=== PATIENT | female | born 1975 | race Caucasian/White ===

== ENCOUNTER → 2017-10-22 10:31 | Outpatient (CLI) | payer MEDICAID, SELFPAY ==
--- NOTE | 2017-10-22 10:38 | RAD_ITS ---
STUDY: X-RAY - LUMBAR SPINE REASON FOR EXAM: Female, 42 years old. Low back pain x2 years radiating down left leg TECHNIQUE: 5 view(s) of the lumbar spine were obtained. COMPARISON: None FINDINGS: Normal lumbar lordosis. There is no substantial scoliosis. There is a normal alignment of the vertebrae. There is mild diffuse endplate spondylosis. Normal disc space heights. There is no demonstrated fracture. There is no demonstrated spondylolysis of the pars interarticulares. The soft tissue structures are unremarkable. RAD/L/S Spine Min 4 Views IMPRESSION: There is mild diffuse endplate spondylosis. The study is otherwise unremarkable. There is no evidence of fracture, spondylolysis, or spondylolisthesis. Disc spacing is preserved. Electronically Signed: Deion Hi MD at 23:28 EST , Service support ,
== END ==
DX: M54.5 Low back pain (principal); G89.4 Chronic pain syndrome
CPT/HCPCS: 72110

== ENCOUNTER 2018-07-25 18:55 | Observation (INO) | payer MEDICAID, SELFPAY ==
[2018-07-25] VITALS (8 sets, daily range): BP systolic 99–123; BP diastolic 59–70; PULSE 104–117; RESP 16–24; TEMP 36.6–37.5; O2SAT 94–100; BMI 24.9
--- NOTE | 2018-07-25 19:13 | EKG12_ITS ---
Test Reason : COUGH Blood Pressure : / mmHG Vent. Rate : 114 BPM Atrial Rate : 114 BPM P-R Int : 130 ms QRS Dur : 080 ms QT Int : 316 ms P-R-T Axes : 071 055 056 degrees QTc Int : 435 ms Sinus tachycardia Otherwise normal ECG Confirmed by CATRACHITA YEPEZ, CHRIS ([id number]), desk editor EDGAR PLASENCIA ([id number] on 07/29/2018 12:51:19 PM Referred By: DC Confirmed By:CHRIS DOMÍNGUEZ MD
--- NOTE | 2018-07-25 19:20 | RAD_ITS ---
STUDY: X-RAY CHEST REASON FOR EXAM: Female, 43 years old. Cough, sore throat, fever. TECHNIQUE: Portable chest. COMPARISON: None. FINDINGS: Airspace disease is noted in the right lower lobe. Lung diego are otherwise clear. There is no demonstrated pleural abnormality. Normal size heart. Normal mediastinum and karina. Normal visualized pulmonary arteries. Normal visualized aortic arch and descending thoracic aorta. Normal visualized thoracic spine. Normal visualized ribs, clavicles, and shoulders. There is no demonstrated abnormality of the visualized soft tissue structures of the upper abdomen. RAD/Chest 1 View (Portable) IMPRESSION: Right lower lobe pneumonia. Electronically Signed: Adrianna Lilly MD at 19:39 EST Tel , Service support ,
[2018-07-25] MEDS: Ipratropium/Albuterol Sulfate 3 ML AMPUL.NEB INHALATION (19:26)
[2018-07-25] MEDS: Ondansetron 4 MG/2 ML Vial IV (19:33)
[2018-07-25] MEDS: MethylPREDNISolone 125 MG/2 ML Vial IV (19:33)
[2018-07-25] MEDS: 0.9% Normal Saline 1,000 ML 1000 ML IV (19:33)
[2018-07-25 19:59] LABS: Absolute Lymphocyte Count 1.72 X10^3/ul (0.83-4.51); Absolute Neutrophil Count 9.7 X10^3/uL (2.0-7.7); Basophil# 0.02 X10^3/uL; Basophil% 0.2 % (0-1); Differential Indicated SCAN CRITERIA MET; Eosinophil# 0.12 X10^3/uL; Hematocrit 39.2 % (37-47); Hemoglobin 12.9 g/dl (12.0-15.0); Lymphocyte # 1.72 X10^3/ul (4.0); Lymphocyte % 13.7 % (19-41); Mean Corp Hgb Conc 32.9 g/gl (32-36); Mean Corpuscular Volume 100.3 fL (81-99); Mean Platelet Vol. 9.8 fl (6.2-12.0); Neutrophil # 9.65 X10^3/uL (2.7-7.7); Neutrophil % 76.9 % (47-70); POSITIVE COUNT NO; POSITIVE DIFFERENTIAL NO; POSITIVE MORPHOLOGY YES; Platelet Count 280 K/mm3 (150-450); RBC Distribution Width CV 13.8 % (11.6-14.6); RBC Distribution Width SD 50.4 fl (35.1-43.9); Red Blood Count 3.91 M/mm3 (4.2-5.4); White Blood Count 12.5 K/mm3 (4.4-11.0)
[2018-07-25 20:10] LABS: Anion Gap 5 (5-15); BUN 7 mg/dL (7-18); BUN/Creat Ratio 10.4 RATIO (10-20); Calcium,Total 8.2 mg/dL (8.5-10.1); Chloride 104 mmol/L (98-107); Creatinine, Serum 0.68 mg/dL (0.55-1.02); EST Glomerular Filtration Rate 101 mL/min (>60); Est Glom Filt Rate - Afr Amer 122 mL/min (>60); Glucose 91 mg/dL (74-106); Potassium 3.9 mmol/L (3.5-5.1); Sodium Level 135 mmol/L (136-145)
[2018-07-25 20:18] LABS: Differential Comment SCANNED
[2018-07-25] MEDS: levoFLOXacin IV 750 MG/150 ML BAG 100 MG IV (22:14)
--- NOTE | 2018-07-25 22:28 | ED.VISSUMM ---
- ER Visit Summary Date of Service: 07/25/18 Chief Complaint: Cough History of Present Illness: The patient is a 43 F with a cough for the past week. The patient had an upper respiratory infection and seemed to get better. Then, about a week ago she started to get sick again. She has a cough with sputum. She feels short of breath and has chest pain at times. She has been having nausea and vomiting as well. She normally takes Zofran but ran out. She denies abdominal pain or other GI symptoms. Physical Examination: Heart rate 117. Otherwise vitals unremarkable. Patient appears uncomfortable and short of breath. Lungs show diminished sounds but otherwise are unremarkable. Heart tachycardic but regular. Skin normal in color. Calves soft and supple. Test Results: EKG showed sinus tachycardia at a rate of 114. No sign of acute ischemia or infarction pattern. Troponin normal. White count 12.5 and sodium 135. Cultures and lactate pending. test pending. Chest x-ray showed right lower lobe pneumonia. Emergency Department Course and Treatment: Patient treated with Solu-Medrol, Zofran, DuoNeb, and fluids while awaiting results. On reevaluation, she remains tachycardic. Her shortness of breath improved, but she is having continued coughing fits. I advised the patient that we can prescribe steroids, breathing treatments, antibiotics. The patient did not feel comfortable going home. Her family did not feel comfortable with her going home. She feels short of breath at times. She has very severe cough. She feels that she is not doing well at home. I spoke with the hospitalist will evaluate the patient. She was treated with Levaquin. Treatment Plan: As above Disposition: Admission Impression: 1. Right lower lobe pneumonia This note was generated with [employer] dictation software. It may contain incorrect words, spelling, and punctuation that were not noted in review of the chart prior to signing ED Disposition - Plan for ED Patient: Chief Complaint: Cough Referrals: Abilio Aguilar MD [Primary Care Provider] -
[2018-07-25 22:33] LABS: Pregnancy, Serum, hCG Quali. NEGATIVE Negative (0-9 Nonpreg)
[2018-07-25 22:39] LABS: Lactic Acid 1.4 mmol/L (0.4-2.0)
--- NOTE | 2018-07-25 23:48 | HP.PCM_ITS ---
Problem List (1) Community acquired pneumonia Status: Acute History of Present Illness Date of Admission: 07/25/18 Chief Complaint: coughing The patient is a 43 year old F with a significant history of tobacco abuse; fibromyalgia; arthritis; spinal stenosis with routine epidural injection; smoker who presents with progressively worsening cough that started about 2 weeks ago. As stated above patient had a cough that started about 2 weeks ago but it re solved only to reappear a week later. At times her cough is productive for yellow sputum. She reports of hemoptysis. Associated with her symptoms is a fever of 101 but without chills. She reports shortness of breath at rest which increases with exertion. She reports sore throat. She vomited a day before her presentation. She reported she had home Zofran which she ran out of. Past Medical History Medical History: Medical History (Last Updated 07/26/18 @ 02:09 by Ted Arechiga MD) Fibromyalgia M79.7 Spinal stenosis M48.00 Allergies oxybutynin Adverse Reaction (Verified 07/25/18 18:57) Other SINUS IRRITATION Home Medications: Ambulatory Orders Medication Instructions Recorded Meloxicam 7.5 mg PO DAILY 04/19/14 Baclofen 10 mg PO DAILY 02/02/15 Duloxetine Hcl [Cymbalta] 30 mg PO DAILY 02/02/15 Oxycodone HCl/Acetaminophen 1 tablet PO Q6H 02/02/15 [Percocet 5/325] Lidocaine [Lidoderm Patch] 1 patch TOPICAL TID PRN 11/22/15 Pantoprazole Sodium [Protonix] 40 mg PO DAILY 11/22/15 Tamsulosin HCl [Flomax] 0.4 mg PO DAILY #3 cap.er.24h 12/19/16 Escitalopram Oxalate [Lexapro] 10 mg PO DAILY 07/25/18 Lorazepam [Ativan] 0.5 mg PO Q6H PRN PRN 07/25/18 Surgical History: hysterectomy, - - Tubal ligation; end exploratory laparotomy. Psychiatric History: Anxiety, Depression Lives: Spouse/ Significant Other Smoking Status: Current every day smoker Tobacco Use: Cigarettes - *Family History Maternal Family History: Family History (Last Updated 07/26/18 @ 02:10 by Ted Arechiga MD) Mother Breast cancer Father Lung cancer Review of Systems Constitutional: Reports: Fever. Denies: Chills, Weight Change HEENT: Reports: Head Aches. Denies: Sinus Congestion, Sinus Drainage Cardiovascular: Denies: Chest Pain, Palpitations Respiratory: Reports: Cough, Shortness of Breath, Shortness of breath at rest, Shortness of breath upon exertion. Denies: Sputum production Gastrointestinal: Reports: Vomiting. Denies: Abdominal Pain Genitourinary: Denies: Dysuria Musculoskeletal: Reports: Back Pain - Chronic. Denies: Joint Pain, Joint Tenderness Skin: Denies: Rash, Wounds Neurological: Denies: Numbness, Tingling, Focal weakness Psychiatric: Denies: Anxiety, Depression, Homicidal Ideations, Suicidal Ideations Hematologic/ Lymphatic: Denies: Easy Bruising, Easy Bleeding VTE Information - Inpt Only VTE Present on Admission: No VTE Mechan Device Prophylaxis: None VTE Pharm Prophylaxis ordered?: Yes Patient Problems: Active and Suspected Problems (Last Updated 07/26/18 @ 02:09 by Ted Arechiga MD) Community acquired pneumonia (Acute) - Physical Exam General: Alert, Oriented x3, Cooperative HEENT: Atraumatic, PERRLA, EOMI, Normocephalic Neck: Supple, No JVD, Negative Carotid Bruits Lungs: Clear to auscultation, Normal air movement, Rhonchi Cardiovascular: No murmurs, Tachycardic Abdomen: Bowel Sounds Present, Soft, Non Tender Extremities: No edema, Capillary Refill Less than 3 Seconds Skin: No rashes, No breakdown Musculoskeletal: No Tenderness to Palpation of Joints or Extremities Neurological: Cranial nerves II-XII grossly intact Psych/Mental Status: Normal Affect, Appropriate Vital Signs Temp Pulse Resp BP Pulse Ox 98 F 107 H 18 111/60 98 07/25/18 23:24 07/25/18 23:24 07/25/18 23:24 07/25/18 23:24 07/25/18 23:24 Oxygen Flow Rate (L/min) 2 Oxygen Delivery Method Room Air Weight: 59.874 kg Body Mass Index (BMI) 24.9 Laboratory Tests Past 24 Hrs 07/25/18 07/25/18 07/25/18 19:30 19:30 19:30 WBC 12.5 H RBC 3.91 L Hgb 12.9 Hct 39.2 MCV 100.3 H MCH 33.0 H MCHC 32.9 RDW 13.8 RDW Differential 50.4 H Plt Count 280 MPV 9.8 Immature Gran % (Auto) 0.200 Neut % (Auto) 76.9 H Lymph % (Auto) 13.[address] [place] % (Auto) 8.0 Eos % (Auto) 1.0 Baso % (Auto) 0.2 Absolute Neuts (auto) 9.7 H Absolute Lymphs (auto) 1.72 Total Counted Not Reportable Differential Comment SCANNED Sodium 135 L Potassium 3.9 Chloride 104 Carbon Dioxide 26.0 Anion Gap 5 BUN 7 Creatinine 0.68 Estim Creat Clear Calc 80.50 Est GFR (MDRD) Af Amer 122 Est GFR (MDRD) Non-Af 101 BUN/Creatinine Ratio 10.4 Glucose 91 Lactic Acid Calcium 8.2 L Troponin I < 0.015 Albumin Serum , Qual NEGATIVE 07/25/18 07/25/18 19:30 22:04 WBC RBC Hgb Hct MCV MCH MCHC RDW RDW Differential Plt Count MPV Immature Gran % (Auto) Neut % (Auto) Lymph % (Auto) [place] % (Auto) Eos % (Auto) Baso % (Auto) Absolute Neuts (auto) Absolute Lymphs (auto) Total Counted Differential Comment Sodium Potassium Chloride Carbon Dioxide Anion Gap BUN Creatinine Estim Creat Clear Calc Est GFR (MDRD) Af Amer Est GFR (MDRD) Non-Af BUN/Creatinine Ratio Glucose Lactic Acid 1.4 Calcium Troponin I Albumin Pending Serum , Qual Assessment/Plan All Active Problems (Last Updated 07/26/18 @ 02:09 by Ted Arechiga MD) Community acquired pneumonia (Acute) The patient is a 43 year old F with a significant history of tobacco abuse; fibromyalgia; arthritis; spinal stenosis with routine epidural injection; smoker who presents with progressively worsening cough; fever shortness of breath; sore throat and dyspnea. Community-acquired pneumonia. Her chest x-ray showed infiltrating right lower lobe consistent with probable pneumonia.. Patient and her felt uncomfortable going home and a decision was made to admit patient. She received Levaquin at emergency department. Will order Levaquin IV for next day. Scheduled DuoNeb and as needed albuterol ordered. Blood cultures are pending. Strep pneumonia antigen; and Legionella antigen were unremarkable. Sputum cultures are pending. Mucinex ordered. Chest physiotherapy ordered. Oxygen as needed. Anticipate sequential antibiotics by transitioning from IV antibiotics to oral antibiotics next day and probably discharged home. Viral syndrome cannot be completely ruled out especially with a sore throat and other multiple symptoms. Influenza screen ordered. Tobacco abuse She reports that she has Chantix sitting at home that she does not use. Counseled Jennifer ordered. Chronic back pain Baclofen continued Depression Cymbalta and Lexapro continued. Anxiety disorder Ativan continued DVT prophylaxis Lovenox ordered Code Visit OBSV E&M: 36297 Initial observation care L3
[2018-07-25 23:55] LABS: Albumin, Serum 3.3 g/dL (3.2-5.0)
[2018-07-26] VITALS (9 sets, daily range): BP systolic 112–127; BP diastolic 56–67; PULSE 8–94; RESP 16–20; TEMP 36.4–36.6; O2SAT 96–98
[2018-07-26] MEDS: guaiFENesin 1,200 MG Tablet 1200 MG PO ×3 (00:32→22:05)
[2018-07-26] MEDS: oxyCODONE 5 MG Tablet PO ×4 (00:32→22:05)
[2018-07-26] MEDS: Acetaminophen 325 MG Tablet 650 MG PO (00:33)
[2018-07-26] MEDS: LORazepam 0.5 MG Tablet PO (00:33)
[2018-07-26] MEDS: Ipratropium/Albuterol Sulfate 3 ML AMPUL.NEB INHALATION ×4 (03:22→19:50)
[2018-07-26 06:36] LABS: Absolute Lymphocyte Count 0.77 X10^3/ul (0.83-4.51); Absolute Neutrophil Count 7.3 X10^3/uL (2.0-7.7); Basophil# 0.01 X10^3/uL; Basophil% 0.1 % (0-1); Hematocrit 37.1 % (37-47); Hemoglobin 12.4 g/dl (12.0-15.0); Lymphocyte # 0.77 X10^3/ul (4.0); Lymphocyte % 9.3 % (19-41); Mean Corp Hgb Conc 33.4 g/gl (32-36); Mean Corpuscular Hgb 33.4 pg (27.0-32.0); Mean Platelet Vol. 9.7 fl (6.2-12.0); Monocyte# 0.19 X10^3/uL; Monocyte% 2.3 % (0-10); Neutrophil # 7.27 X10^3/uL (2.7-7.7); Neutrophil % 88.1 % (47-70); Platelet Count 270 K/mm3 (150-450); RBC Distribution Width CV 13.6 % (11.6-14.6); RBC Distribution Width SD 48.8 fl (35.1-43.9); Red Blood Count 3.71 M/mm3 (4.2-5.4); White Blood Count 8.3 K/mm3 (4.4-11.0)
[2018-07-26 06:45] LABS: POSITIVE COUNT NO; POSITIVE DIFFERENTIAL NO; POSITIVE MORPHOLOGY NO
[2018-07-26 06:55] LABS: Anion Gap 10 (5-15); BUN 8 mg/dL (7-18); BUN/Creat Ratio 13.6 RATIO (10-20); Chloride 107 mmol/L (98-107); Creatinine, Serum 0.59 mg/dL (0.55-1.02); EST Glomerular Filtration Rate 119 mL/min (>60); Est Glom Filt Rate - Afr Amer 144 mL/min (>60); Estimated Creatinine Clearance 92.78 ml/min; Glucose 171 mg/dL (74-106); Sodium Level 140 mmol/L (136-145)
--- NOTE | 2018-07-26 09:28 | PN_ITS ---
Patient Problems: Active and Suspected Problems (Last Updated 07/26/18 @ 02:09 by Ted Arechiga MD) Community acquired pneumonia (Acute) Subjective: Chief complaint: Follow-up after admission for acute bronchitis and probable early right lower lobe community acquired pneumonia. Patient seen and examined. No acute events overnight. She still complaining of severe dry cough associated with significant chest discomfort. She denies fever chills. Her vital signs are stable. - Physical Exam General: Alert, Oriented x3, Cooperative, No apparent distress HEENT: Atraumatic, PERRLA, EOMI, Normocephalic Oral: Moist Mucosa, No Gingival or Mucosal Lesions/ Ulcerations Neck: Supple, No JVD, Negative Carotid Bruits, Trachea Midline, Thyroid Normal Size and Texture Lungs: Clear to auscultation, No wheeze, No rales, Diminished, Rhonchi Cardiovascular: Regular rate, Regular Rhythm, Normal S1, Normal S2, No murmurs, PMI Normal Abdomen: Bowel Sounds Present, Soft, Non Tender, Non-Distended, No Hepato- splenomegaly Extremities: No clubbing, No cyanosis, No edema Skin: No rashes, No breakdown Lymphatic: No Cervical, Supraclavicular, or Inguinal Adenopathy Neurological: Cranial nerves II-XII grossly intact, Motor Exam 5/5 strength throughout Psych/Mental Status: Normal Affect, Appropriate, Alert and oriented to time, place, person, mood and affect Vital Signs Temp Pulse Resp BP Pulse Ox 98 F 88 16 111/60 96 07/25/18 23:24 07/26/18 07:16 07/26/18 07:16 07/25/18 23:24 07/26/18 07:16 Oxygen Flow Rate (L/min) 2 Oxygen Delivery Method Room Air Weight: 132 lb Body Mass Index (BMI) 24.9 Intake and Output for Last 24 Hours 07/24/18 07/25/18 07/26/18 23:59 23:59 23:59 Intake Total 1000 / 1000 Balance 1000 / 1000 Microbiology Past 72 Hours 07/26/18 00:45 Streptococcus pneumoniae Antigen (M - Final Urine, Clean Catch 07/26/18 00:45 Legionella Antigen - Final Urine, Clean Catch Laboratory Tests Past 24 Hrs 07/25/18 07/25/18 07/25/18 19:30 19:30 19:30 WBC 12.5 H RBC 3.91 L Hgb 12.9 Hct 39.2 MCV 100.3 H MCH 33.0 H MCHC 32.9 RDW 13.8 RDW Differential 50.4 H Plt Count 280 MPV 9.8 Immature Gran % (Auto) 0.200 Neut % (Auto) 76.9 H Lymph % (Auto) 13.7 L [place] % (Auto) 8.0 Eos % (Auto) 1.0 Baso % (Auto) 0.2 Absolute Neuts (auto) 9.7 H Absolute Lymphs (auto) 1.72 Total Counted Not Reportable Differential Comment SCANNED Sodium 135 L Potassium 3.9 Chloride 104 Carbon Dioxide 26.0 Anion Gap 5 BUN 7 Creatinine 0.68 Estim Creat Clear Calc 80.50 Est GFR (MDRD) Af Amer 122 Est GFR (MDRD) Non-Af 101 BUN/Creatinine Ratio 10.4 Glucose 91 Lactic Acid Calcium 8.2 L Troponin I < 0.015 Albumin Serum , Qual NEGATIVE Influenza Type A Ag Influenza Type B Ag 07/25/18 07/25/18 07/26/18 19:30 22:04 05:55 WBC 8.3 RBC 3.71 L Hgb 12.4 Hct 37.1 MCV 100.0 H MCH 33.4 H MCHC 33.4 RDW 13.6 RDW Differential 48.8 H Plt Count 270 MPV 9.7 Immature Gran % (Auto) 0.200 Neut % (Auto) 88.1 H Lymph % (Auto) 9.3 L [place] % (Auto) 2.3 Eos % (Auto) 0.0 Baso % (Auto) 0.1 Absolute Neuts (auto) 7.3 Absolute Lymphs (auto) 0.77 L Total Counted Not Reportable Differential Comment Sodium Potassium Chloride Carbon Dioxide Anion Gap BUN Creatinine Estim Creat Clear Calc Est GFR (MDRD) Af Amer Est GFR (MDRD) Non-Af BUN/Creatinine Ratio Glucose Lactic Acid 1.4 Calcium Troponin I Albumin 3.3 Serum , Qual Influenza Type A Ag Influenza Type B Ag 07/26/18 07/26/18 05:55 05:55 WBC RBC Hgb Hct MCV MCH MCHC RDW RDW Differential Plt Count MPV Immature Gran % (Auto) Neut % (Auto) Lymph % (Auto) [place] % (Auto) Eos % (Auto) Baso % (Auto) Absolute Neuts (auto) Absolute Lymphs (auto) Total Counted Differential Comment Sodium 140 Potassium 4.0 Chloride 107 Carbon Dioxide 23.0 Anion Gap 10 BUN 8 Creatinine 0.59 Estim Creat Clear Calc 92.78 Est GFR (MDRD) Af Amer 144 Est GFR (MDRD) Non-Af 119 BUN/Creatinine Ratio 13.6 Glucose 171 H Lactic Acid Calcium 8.0 L Troponin I Albumin Serum , Qual Influenza Type A Ag Pending Influenza Type B Ag Pending Medical Necessity - Tobacco Use Smoking Status: Current every day smoker Tobacco Use: Cigarettes Assessment/Plan All Active Problems (Last Updated 07/26/18 @ 02:09 by Ted Arechiga MD) Community acquired pneumonia (Acute) This is a 42 years old female patient presented to the emergency room because of persistent dry cough and she was found to have probable early infiltrate on the right base on chest x-ray, found to have acute bronchitis and probable near the right lower lobe community-acquired pneumonia. #1 acute bronchitis/probable early right lower lobe community acquired pneumonia: Chest x-ray reviewed, revealed possible early right lower lobe infiltrate. She is afebrile, no leukocytosis, lactic acid is normal. She is on IV Levaquin and bronchodilators. She is still symptomatic. Her vital signs are stable, afebrile, pulse ox is maintained on room air. Pneumococcal and Legionella antigen were negative. Blood cultures pending. Plan: Continue same treatment, start Robitussin-AC as needed. #2 suspected COPD: Patient is a longtime smoker, has been using albuterol nebulizer at home. Never had lung function test and never been diagnosed officially with COPD. She is on DuoNeb and albuterol as needed, pulse oximeter on room air. Plan as above. #3 chronic back pain: Continue OxyIR, baclofen and Mobic. #4 anxiety/depression: Stable, continue Cymbalta Lexapro and Ativan. #5 tobacco abuse: Continue NicoDerm patch. #6 DVT prophylaxis: Subcu Lovenox. This note was generated with [employer] dictation software. It may contain incorrect words, spelling, and punctuation that were not noted in checking the note before signing. Code Visit Inpatient E&M: 47992 Subs Hosp L2
[2018-07-26] MEDS: Escitalopram Oxalate 10 MG Tablet PO (09:46)
[2018-07-26] MEDS: Pantoprazole Sodium 40 MG Tablet PO (09:46)
[2018-07-26] MEDS: Meloxicam 7.5 MG Tablet PO (09:46)
[2018-07-26] MEDS: Baclofen 10 MG Tablet PO (09:46)
[2018-07-26] MEDS: DULoxetine Hcl 30 MG Capsule PO (09:46)
[2018-07-26] MEDS: Enoxaparin 40 MG/0.4 ML Syringe SC (09:48)
[2018-07-26] MEDS: guaiFENesin/Codeine 5 ML UDC 10 ML PO ×3 (09:54→22:05)
[2018-07-26] MEDS: 0.9% NaCl Peripheral Flush Adult/Peds IV (15:39)
[2018-07-26] MEDS: levoFLOXacin IV 750 MG/150 ML BAG 100 MG IV (22:05)
[2018-07-27] VITALS (8 sets, daily range): BP systolic 114–120; BP diastolic 76–86; PULSE 82–89; RESP 16–21; TEMP 36.5–37.1; O2SAT 95–97
[2018-07-27] MEDS: Magnesium Hydroxide 30 ML UDC PO (00:09)
[2018-07-27] MEDS: LORazepam 0.5 MG Tablet PO (00:10)
[2018-07-27] MEDS: Ipratropium/Albuterol Sulfate 3 ML AMPUL.NEB INHALATION ×3 (00:25→13:13)
[2018-07-27] MEDS: Ondansetron 4 MG/2 ML Vial IV (00:27)
[2018-07-27] MEDS: guaiFENesin/Codeine 5 ML UDC 10 ML PO ×3 (04:18→14:44)
[2018-07-27] MEDS: oxyCODONE 5 MG Tablet PO ×2 (04:18→10:14)
--- NOTE | 2018-07-27 09:05 | DCINST_ITS ---
- Discharge Diagnoses Current Active Problems: Current Active and Chronic Problems (Last Updated 07/26/18 @ 02:09 by Ted Arechiga MD) Community acquired pneumonia (Acute) You will use the following diet at home:: Regular Discharge Activity: May not drive while taking narcotic pain medications. Call your doctor if you observe: Fever of 101 or Higher, Inability to have a bowel movement, Shortness of breath, Fainting spells, Swelling in the ankles, Chest pain, Increased palpitations (irregular heartbeat) Allergies/Adverse Reactions: Allergies oxybutynin Adverse Reaction (Verified 07/25/18 18:57) Other SINUS IRRITATION Medications to take at Discharge Meloxicam 7.5 mg PO DAILY 04/19/14 Baclofen 10 mg PO DAILY 02/02/15 Duloxetine Hcl [Cymbalta] 30 mg PO DAILY 02/02/15 Oxycodone HCl/Acetaminophen [Percocet 5-325] 1 tablet PO Q6H 02/02/15 Lidocaine [Lidoderm Patch] 1 patch TOPICAL TID PRN 11/22/15 Pantoprazole Sodium [Protonix] 40 mg PO DAILY 11/22/15 Tamsulosin HCl [Flomax] 0.4 mg PO DAILY #3 cap.er.24h 12/19/16 Escitalopram Oxalate [Lexapro] 10 mg PO DAILY 07/25/18 Lorazepam [Ativan] 0.5 mg PO Q6H PRN PRN 07/25/18 Albuterol Inhaler [Ventolin Hfa] 2 puff INHALATION Q4H PRN PRN #1 inhaler 07/27/18 Guaifenesin [Mucinex] 1,200 mg PO BID #14 tablet 07/27/18 Levofloxacin [Levaquin] 500 mg PO DAILY #5 tablet 07/27/18 Nicotine [Nicoderm Cq] 21 mg TRANSDERM. DAILY patch 07/27/18 The following prescriptions were given: Albuterol Inhaler [Ventolin Hfa] 2 puff INHALATION Q4H PRN PRN #1 inhaler PRN Reason: SOB/Wheezing Levofloxacin [Levaquin] 500 mg PO DAILY #5 tablet Guaifenesin [Mucinex] 1,200 mg PO BID #14 tablet Primary Care Physician: Abilio Aguilar MD [Primary Care Provider] - Please follow up with your Primary Care Physician in: in 1-2 weeks. Need outpatient PFT Test Results: Test results from this visit will be discussed in further detail at your follow- up appointment, if applicable.
--- NOTE | 2018-07-27 09:05 | PCM.DC.SUM ---
Discharge Date and Diagnosis Date of Admission: 07/25/18 Date of Discharge: 07/27/18 - Primary Discharge Diagnosis Active and Suspected Problems (Last Updated 07/26/18 @ 02:09 by Ted Arechiga MD) Community acquired pneumonia (Acute) Right lower lobe involving early evolving community-acquired pneumonia Hospital Course and Treatment Summary of Care Provided: [] This is a 42 years old female patient who was admitted to regular floor because of persistent dry cough for 1 week, nausea and vomiting and shortness of breath and sore throat. Low-grade fever in ER. she was found to have probable early infiltrate on the right base on chest x-ray, found to have acute bronchitis and probable early evolving right lower lobe community-acquired pneumonia. #1 acute bronchitis/probable early right lower lobe community acquired pneumonia: Chest x-ray reviewed, revealed possible early right lower lobe infiltrate. She is afebrile, no leukocytosis, lactic acid is normal. She is on IV Levaquin and bronchodilators. She is still symptomatic. Her vital signs are stable, afebrile, pulse ox is maintained on room air. Pneumococcal and Legionella antigen were negative. Blood cultures negative for more than 48 hours. Leukocytosis resolved. Patient was discharged on Levaquin for 5 more days. Patient also given prescription for Robitussin-AC because of persistent severe cough. #2 suspected COPD: Patient is a longtime smoker, has been using albuterol nebulizer at home. Never had lung function test and never been diagnosed officially with COPD. She is on DuoNeb and albuterol as needed, pulse oximeter on room air. Patient will need outpatient PFT. Discharged on albuterol inhaler. #3 chronic back pain: Continue OxyIR, baclofen and Mobic. #4 anxiety/depression: Stable, continue Cymbalta Lexapro and Ativan. #5 tobacco abuse: Continue NicoDerm patch. #6 DVT prophylaxis: Subcu Lovenox. Discharge medication reconciliation done. Discharge medications and follow-up instructions discussed with the patient. Follow-up PCP in 1-2 weeks. Total time spent, exact 35 minutes on discharge meds reconciliation, examination, review of imaging and blood test and discussion with the patient on follow-up instructions. - Physical Exam Vital Signs Temp Pulse Resp BP Pulse Ox 98.1 F 84 16 120/86 H 96 07/27/18 08:51 07/27/18 08:51 07/27/18 08:51 07/27/18 08:51 07/27/18 08:51 Oxygen Flow Rate (L/min) 2 Oxygen Delivery Method Room Air Weight: 132 lb Body Mass Index (BMI) 24.9 Intake and Output for Last 24 Hours 07/25/18 07/26/18 07/27/18 23:59 23:59 23:59 Intake Total 1420 / 1420 1525 / 1525 Balance 1420 / 1420 1525 / 1525 Microbiology Past 72 Hours 07/26/18 00:45 Streptococcus pneumoniae Antigen (M - Final Urine, Clean Catch 07/26/18 00:45 Legionella Antigen - Final Urine, Clean Catch Discharge Activity: May not drive while taking narcotic pain medications. Call your doctor if you observe: Fever of 101 or Higher, Inability to have a bowel movement, Shortness of breath, Fainting spells, Swelling in the ankles, Chest pain, Increased palpitations (irregular heartbeat) Home Medications: Medications to take at Discharge Meloxicam 7.5 mg PO DAILY 04/19/14 Baclofen 10 mg PO DAILY 02/02/15 Duloxetine Hcl [Cymbalta] 30 mg PO DAILY 02/02/15 Oxycodone HCl/Acetaminophen [Percocet 5-325] 1 tablet PO Q6H 02/02/15 Lidocaine [Lidoderm Patch] 1 patch TOPICAL TID PRN 11/22/15 Pantoprazole Sodium [Protonix] 40 mg PO DAILY 11/22/15 Tamsulosin HCl [Flomax] 0.4 mg PO DAILY #3 cap.er.24h 12/19/16 Escitalopram Oxalate [Lexapro] 10 mg PO DAILY 07/25/18 Lorazepam [Ativan] 0.5 mg PO Q6H PRN PRN 07/25/18 Albuterol Inhaler [Ventolin Hfa] 2 puff INHALATION Q4H PRN PRN #1 inhaler 07/27/18 Guaifenesin [Mucinex] 1,200 mg PO BID #14 tablet 07/27/18 Guaifenesin/Codeine [Robitussin AC] 5 ml PO Q4H PRN PRN #75 ml 07/27/18 Levofloxacin [Levaquin] 500 mg PO DAILY #5 tablet 07/27/18 Nicotine [Nicoderm Cq] 21 mg TRANSDERM. DAILY patch 07/27/18 Following Prescrptions Were Given to Patient: Albuterol Inhaler [Ventolin Hfa] 2 puff INHALATION Q4H PRN PRN #1 inhaler PRN Reason: SOB/Wheezing Guaifenesin/Codeine [Robitussin AC] 5 ml PO Q4H PRN PRN #75 ml PRN Reason: Cough Levofloxacin [Levaquin] 500 mg PO DAILY #5 tablet Guaifenesin [Mucinex] 1,200 mg PO BID #14 tablet Primary Care Physician: Abilio Aguilar MD [Primary Care Provider] - Please follow up with your Primary Care Physician in: in 1-2 weeks. Need outpatient PFT Medical Necessity - Tobacco Use Smoking Status: Current every day smoker Tobacco Use: Cigarettes Meaningful Use Info Meaningful Use Diagnoses (Choose all that apply): None applicable Code Visit Inpatient E&M: 28576 [facility]
[2018-07-27] MEDS: guaiFENesin 600 MG Tablet PO (09:35)
[2018-07-27] MEDS: Enoxaparin 40 MG/0.4 ML Syringe SC (09:39)
[2018-07-27] MEDS: Meloxicam 7.5 MG Tablet PO (09:40)
[2018-07-27] MEDS: Escitalopram Oxalate 10 MG Tablet PO (09:40)
[2018-07-27] MEDS: DULoxetine Hcl 30 MG Capsule PO (09:40)
[2018-07-27] MEDS: Baclofen 10 MG Tablet PO (09:40)
[2018-07-27] MEDS: Pantoprazole Sodium 40 MG Tablet PO (09:40)
[2018-07-30 08:28] LABS: Influenza B Negative (Neg:<1:8)
== END 2018-07-27 15:19 | disposition home or self-care (01) ==
LOC: ED 20:33 → MS3 22:39
PROVIDERS: Admitting Provider Hospitalist; Emergency Provider Emergency Medicine; Family Provider Family Medicine; PCP Family Medicine; Visit Provider Internal Medicine
DX: J18.9 Pneumonia, unspecified organism (principal); Z23 Encounter for immunization; F41.9 Anxiety disorder, unspecified; F32.9 Major depressive disorder, single episode, unspecified; G89.29 Other chronic pain; M79.7 Fibromyalgia; M19.90 Unspecified osteoarthritis, unspecified site; M48.00 Spinal stenosis, site unspecified; Z79.891 Long term (current) use of opiate analgesic; F17.210 Nicotine dependence, cigarettes, uncomplicated; Z79.899 Other long term (current) drug therapy
CPT/HCPCS: 36415; 71045; 80048; 82040; 83605; 84484; 84703; 85025; 86710; 87040; 87070; 87077; 87205; 87449; 93005; 94640; 94667; 94668; 96365; 96366; 96372; 96375; 96376; 99218; 99283; 99406; J7030; 90686; A4216; G0378; J2405

== ENCOUNTER → 2019-06-17 12:07 | Outpatient (CLI) | payer MEDICAID, SELFPAY ==
[2018-07-25 23:06] VITALS: BMI 24.9
[2019-06-17 14:15] LABS: Color, Urine Straw (Yellow); Glucose, Dipstick Normal (Normal); Ketone-Dipstick Negative (Negative); Leukocyte Esterase-Dipstick Negative /ul (Negative); Nitrite-Dipstick Negative (Negative); Occult Blood-Urine Negative /ul (Negative); Protein-Dipstick Negative (Negative); Specific Gravity, Urine 1.005 (1.002-1.030); Urine Bilirubin Dipstick Negative (Negative); Urine Clarity Clear (Clear); Urine Urobilinogen Normal (Normal)
[2019-06-17 14:16] LABS: Absolute Lymphocyte Count 1.89 X10^3/uL (0.83-4.51); Absolute Neutrophil Count 4.5 X10^3/uL (2.0-7.7); Basophil# 0.05 X10^3/uL; Basophil% 0.7 % (0-1); Eosinophils% 2.8 % (0-5); Hematocrit 45.3 % (37-47); Lymphocyte # 1.89 X10^3/ul (4.0); Lymphocyte % 26.2 % (19-41); Mean Corp Hgb Conc 33.1 g/dL (32-36); Mean Corpuscular Hgb 33.2 pg (27.0-32.0); Mean Corpuscular Volume 100.2 fL (81-99); Mean Platelet Vol. 9.2 fl (6.2-12.0); Monocyte# 0.58 X10^3/uL; NRBC Flagged by Analyzer 0 % (0-5); Neutrophil # 4.46 X10^3/uL (2.7-7.7); Neutrophil % 61.9 % (47-70); Platelet Count 287 K/mm3 (150-450); RBC Distribution Width CV 14.1 % (11.6-14.6); RBC Distribution Width SD 52.5 fl (35.1-43.9); Red Blood Count 4.52 M/mm3 (4.2-5.4); White Blood Count 7.2 K/mm3 (4.4-11.0)
[2019-06-17 14:30] LABS: ALB/GLOB Ratio 1.1 RATIO (0.9-2.4); AST(SGOT) 12 U/L (15-37); Alanine Aminotransfer ALT/SGPT 20 U/L (13-56); Alkaline Phosphatase 65 U/L (45-117); Anion Gap 6 (5-15); BUN 8 mg/dL (7-18); Calcium,Total 8.8 mg/dL (8.5-10.1); Chloride 104 mmol/L (98-107); Cholesterol 148 mg/dL (200); Creatinine, Serum 0.73 mg/dL (0.55-1.02); EST Glomerular Filtration Rate 93 mL/min (>60); Est Glom Filt Rate - Afr Amer 112 mL/min (>60); Globulin 3.8 g/dL (2.2-4.2); Glucose 81 mg/dL (74-106); High Density Lipoprotein 70 mg/dL; Potassium 4.1 mmol/L (3.5-5.1); Protein, Total 7.8 g/dL (6.4-8.2); Sodium Level 138 mmol/L (136-145); Triglycerides 81 mg/dL; Very Low Density Lipoprotein 16 mg/dL (5-40)
== END ==
PROVIDERS: Family Provider Family Medicine; PCP Family Medicine; Referring Provider Family Medicine; Visit Provider Family Medicine
DX: Z00.00 Encounter for general adult medical examination without abnormal findings (principal)
CPT/HCPCS: 36415; 80053; 80061; 81002; 85025

== ENCOUNTER → 2019-06-29 13:09 | Outpatient (CLI) | payer MEDICAID, SELFPAY ==
[2018-07-25 23:06] VITALS: BMI 24.9
--- NOTE | 2019-06-29 13:12 | BI_ITS ---
MAMMOGRAPHY - BILATERAL SCREENING REASON FOR EXAM: Female, 44 years old. Routine annual screening examination. PERTINENT HISTORY: Mother with breast cancer. TECHNIQUE: Digital bilateral breast lito (3D mammographic acquisition) in the CC and MLO projections. 2-D mediolateral oblique (MLO) and craniocaudad (CC) views of both breasts were obtained. CAD: Full Field Digital Mammography with Computer Added Detection was performed. COMPARISON: Comparison is made with prior study dated August 11, 2014 and July 20, 2013. FINDINGS: Breast Composition: The breasts are heterogeneously dense, which may obscure small masses. There are no dominant masses or suspicious calcifications. No other significant abnormalities are identified. There has been no significant change since the prior study. BI/SCREEN MAMM (CAD) W/LITO BILAT IMPRESSION: Stable bilateral screening mammogram. Yearly follow-up mammogram recommended. (A) ASSESSMENT CATEGORY: BIRADS Category 1: Negative. A letter regarding these results will be sent to the patient by the facility within 30 days. Approximately 10% of breast cancers are not detected by mammography. A normal mammogram should not delay biopsy of a clinically suspicious abnormality. [id number] Electronically Signed: Demetris Taylor, at 15:18 EDT , Service support ,
== END ==
PROVIDERS: Family Provider Family Medicine; PCP Family Medicine; Referring Provider Family Medicine; Visit Provider Family Medicine
DX: Z12.31 Encounter for screening mammogram for malignant neoplasm of breast (principal)
CPT/HCPCS: 77063; 77067

== ENCOUNTER → 2021-09-04 17:15 | Outpatient (CLI) | payer MEDICAID, SELFPAY ==
--- NOTE | 2021-09-04 17:08 | BI_ITS ---
MAMMOGRAPHY - BILATERAL SCREENING 3-D TOMOSYNTHESIS REASON FOR EXAM: Female, 46 years old. SCREEN PERTINENT HISTORY: No significant family history. TECHNIQUE: 2-D mammograms and 3-D Tomosynthesis of the breast (s) were performed. CAD was performed. COMPARISON: 06/29/2019 FINDINGS: The breast composition is heterogeneously dense that can obscure small breast masses. Scattered benign calcifications are seen. No dense spiculated masses or suspicious microcalcifications are identified. No architectural distortion is identified. There is no skin thickening or retraction. There has been no significant change since the prior study. BI/SCRN MAMM (CAD)W/LITO BILAT IMPRESSION: No mammographic signs of malignancy. Routine yearly mammograms recommended. ASSESSMENT CATEGORY: BIRADS Category 1: Negative. A letter regarding these results will be sent to the patient by the facility within 30 days. FOLLOW UP RECOMMENDATION: Yearly follow up mammogram recommended. (A) Approximately 10% of breast cancers are not detected by mammography. A normal mammogram should not delay biopsy of a clinically suspicious abnormality. Electronically Signed: Wily Kimball MD at 17:38 EST Tel , Service support ,
== END ==
PROVIDERS: PCP Family Medicine; Referring Provider Family Medicine; Visit Provider Family Medicine
DX: Z12.31 Encounter for screening mammogram for malignant neoplasm of breast (principal)
CPT/HCPCS: 77063; 77067

== ENCOUNTER → 2024-03-01 | Outpatient (CLI) | payer MEDICAID, SELFPAY ==
--- NOTE | 2024-03-01 12:14 | US_ITS ---
INDICATION: THYROID NODULES EXAMINATION: Ultrasound US Thyroid (eg thyroid, parathyroid, parotid) TECHNIQUE: Aguilar scale and color doppler imaging was performed of the thyroid gland. COMPARISON: No relevant prior comparison study available FINDINGS: RIGHT THYROID LOBE: 1.5 x 5.3 x 1.6 cm. Homogeneous echotexture with normal vascularity. [No thyroid nodules are present. LEFT THYROID LOBE: 1.5 x 4.4 x 1.4 cm. Homogeneous echotexture with normal vascularity. [Within the lower pole there is a 0.5 x 0.3 x 0.4 cm mixed cystic/solid nodule with no associated calcifications nor increased internal vascularity (TI-RADS 1). ISTHMUS: 0.32 cm. No thyroid nodules are present. There is a nonpathologically enlarged lymph node within the left neck measuring up to 0.4 cm in short axis. US/Thyroid IMPRESSION: Enlarged thyroid gland. 0.5 x 0.3 x 0.4 cm mixed cystic/solid nodule within the left lobe. Electronically Signed: Renee Biggs MD at 9:59 EDT ,
== END | disposition home or self-care (01) ==
LOC: US 12:05
PROVIDERS: PCP Family Medicine; Referring Provider Otolaryngology; Visit Provider Otolaryngology
DX: E04.1 Nontoxic single thyroid nodule (principal)
CPT/HCPCS: 76536